=== PATIENT | male | born 1980 | race Caucasian/White ===

== ENCOUNTER 2020-06-15 20:35 | Emergency (ER) | payer SELFPAY ==
[~2020-06-15] VITALS: Ht 162.6 cm; Wt 58.4 kg
[2020-06-15 20:45] VITALS: BP 138/85
[2020-06-15] MEDS ORDERED: CEPH500C PO (20:55)
--- NOTE | 2020-06-15 20:55 | PHYS DOC ---
Past History Past Medical History: Cancer, Diabetes Past Surgical History: No Surgical History Alcohol Use: Occasionally Drug Use: None Adult General HPI HPI Patient is a 39-year-old male with a past medical history significant for diabetes who presents with a chief complaint of laceration. States he was walking outside and the corner of a plantar that has some metal and/or nail on it cut into his left lower leg. States this was a little bit before coming to the emergency department. States he is not up-to-date on his tetanus vaccination. Denies any other injuries. Review of Systems Review of Systems Review of systems otherwise unremarkable except noted in HPI Allergies Allergies Allergies Coded Allergies Type Severity Reaction Last Updated Verified No Known Drug Allergies 09/18/15 No Physical Exam Physical Exam Constitutional: Well developed, well nourished, no acute distress, non-toxic appearance. [] HENT: Normocephalic, atraumatic, bilateral external ears normal, oropharynx moist, no oral exudates, nose normal. [] Skin: Warm, dry, no erythema, no rash. [] Extremities: Patient has an approximately 6 to 8 cm linear laceration on the lateral distal left lower extremity. Neurovascular exam intact. Musculoskeletal exam intact. Hemostasis achieved with pressure bandage placed at home. Neurologic: Alert and oriented X 3, normal motor function, normal sensory function, no focal deficits noted. [] Psychologic: Affect normal, judgement normal, mood normal. [] EKG EKG [] Radiology/Procedures Radiology/Procedures Wound cleaned with 250 mL normal saline. L ET placed for anesthesia. Anesthesia achieved. Ten 3-0 Prolene sutures placed. Patient tolerated well. Cleaned wound again with sterile saline. Bandaged. [] Heart Score C/O Chest Pain: No Risk Factors: Risk Factors: DM, Current or recent (<one month) smoker, HTN, HLP, family history of CAD, obesity. Risk Scores: Risk Factors: DM, Current or recent (<one month) smoker, HTN, HLP, family history of CAD, obesity. Course & Med Decision Making Course & Med Decision Making Patient is a 39-year-old male who presents with a lower left limb laceration Vital signs not concerning. Physical exam noted above. Updated on tetanus vaccination. Started on Keflex as patient is diabetic and was cut by dirty metal. L ET placed for topical anesthesia. Repaired with suture, cleaned and bandaged. Gave strict return precautions to ED. Gave wound care instructions. Started on Keflex in the ED. Advised to follow-up with primary care in 7 to 10 days for a wound check and suture removal. Patient grateful, verbalized understanding and agreed with plan of discharge [] Dragon Disclaimer Dragon Disclaimer This electronic medical record was generated, in whole or in part, using a voice recognition dictation system. Departure Departure: Impression: Primary Impression: Laceration Disposition: 01 DC HOME SELF CARE/HOMELESS Condition: GOOD Referrals: BRANDI TORREZ MD (PCP) Patient Instructions: Laceration Care, Adult, Sutured Wound Care Additional Instructions: Please read all the attached information. Please keep the area clean, dry and bandaged. Please take your antibiotics as prescribed. Please call your primary care physician first thing Wednesday to update on ED visit and set up a follow-up visit in 7 to 10 days for a wound check and suture removal. Please come back to the ED with new or concerning symptoms. Scripts Cephalexin (CEPHALEXIN) 500 Mg Capsule 1 CAP PO TID for laceration for 7 Days, #21 CAP Prov: TARA RODRIGUEZ MD 06/15/20 TARA RODRIGUEZ MD Jun 15, 2020 20:55
[2020-06-15] MEDS ORDERED: LIDOCAINE/EPI/TETRACAINE TOPICAL GEL 3 ML. TP ONE (21:00)
[2020-06-15] MEDS ORDERED: CEPHALEXIN 250 MG CAPSULE PO ONE (21:00)
[2020-06-15] MEDS ORDERED: DIPH,PERTUSS(ACELL),TET VAC/PF 0.5 ML SYRINGE. VAX IM ONE (21:00)
[2020-06-15] MEDS ORDERED: IBUPROFEN 600 MG TABLET. PO ONE ×2 (21:51→22:00)
== END 2020-06-15 22:15 | disposition home or self-care (01) ==
LOC: ER 20:35
DX: S81.812A Laceration without foreign body, left lower leg, initial encounter (principal); E11.9 Type 2 diabetes mellitus without complications; Y28.8XXA Contact with other sharp object, undetermined intent, initial encounter; Y93.89 Activity, other specified; Y92.89 Other specified places as the place of occurrence of the external cause; Y99.8 Other external cause status
CPT/HCPCS: 12004; 90471; 90715; 99283-25; 99284-25